=== PATIENT | male | born 1930 ===

== ENCOUNTER 2017-03-18 05:40 | Inpatient (IN) | payer OTHER ==
[2017-03-18] VITALS (10 sets, daily range): BP systolic 118–165; BP diastolic 63–80
[~2017-03-18] VITALS: Ht 172.7 cm; Wt 63.5 kg
--- NOTE | 2017-03-18 06:39 | ED CLINICAL REPORT ---
Clinical Report - Physicians/Mid Levels [facility] [address] [place] [address] 03/18/2017 5:44 Patient: [address] Time Seen: 06:05 Mar 18 2017. Arrived- By ambulance. Historian- patient, EMS personnel and family. CPT: ER phys charges level 5 plus (#[id number]). EKG interpretation (#[id number]). HISTORY OF PRESENT ILLNESS Chief Complaint: INJURY TO RIGHT LOWER EXTREMITY (HIP). Location of injuries- right hip. The injury occurred just prior to arrival. Occurred at home. Fell while walking and landed on a hard surface; lost balance (Was trying to walk in the dark and missed grabbing the door and fell.). The patient complains of moderate pain. No blow to the head, neck pain or loss of consciousness. Not dazed. REVIEW OF SYSTEMS The patient complains of severe pain on weight bearing. He cannot bear weight. No numbness, dizziness, chest pain, difficulty breathing or weakness. No nausea, abdominal pain or pain, laceration or fever. No vomiting, chills, fatigue, epistaxis or sore throat. No calf pain, cough, difficulty breathing, pedal edema or palpitations. No black stools, bloody stools, constipation, diarrhea or nausea. No vomiting, skin lesions or rash, weakness or diabetic symptoms. No easy bruising, symptoms of hypothyroidism or difficulty with urination. The patient complains of severe pain on weight bearing. He cannot bear weight. He has had difficulty walking. All systems otherwise negative, except as recorded above. PAST HISTORY Hypertension. ND with stent 3 years ago. Thyroid disease. Medications: Latanoprost Ophthalmic. Levothyroxine Sodium Oral 50 mcg, daily. Aspirin Oral. Atropine-Care Ophthalmic. Lisinopril Oral 5 mg, daily. Simvastatin Oral 40 mg, daily. Metoprolol Tartrate Oral 25 mg. Allergies: No Known Drug Allergy. SOCIAL HISTORY Never smoker. No alcohol use or drug use. ADDITIONAL NOTES The nursing notes have been reviewed. PHYSICAL EXAM Vital Signs: 03/18/2017 05:45 BP: 192/89. HR: 71. RR: 16. O2 saturation: 98%. Temp: 97.6 F. Pain level now: 10/10. Appearance: Alert. Appears to be in pain. Patient in moderate distress. Head: Head non-tender. Eyes: Pupils equal, round and reactive to light. EOM intact. ENT: No dental injury. Pharynx normal. Neck: Non-tender. CVS: Heart sounds normal. Pulses normal. Respiratory: Breath sounds normal. Chest nontender. Abdomen: No visible injury. Soft and nontender. Back: No tenderness. Skin: Skin intact. Skin warm. Normal skin color. Extremities: Right hip: deformity consistent with a hip fracture and severe tenderness located in the anterior and lateral aspect of the hip. The right leg is shortened and internally rotated. Limited ROM secondary to pain. Neurovascular intact distally. No swelling or abrasion. Neuro: Oriented X 3. No motor deficit. No sensory deficit. LABS, X-RAYS, AND EKG EKG: Normal sinus rhythm. Left atrial enlargement. LVH. Normal ST and T waves. Prior EKG unavailable. The study has been interpreted contemporaneously. The study has been independently viewed by me. The EKG appears to be a good tracing. Chest X-ray: No acute disease. Views: AP (portable). Technique: good. The X-rays were independently viewed by me and interpreted contemporaneously by me. Rt Hip X-ray: Nondisplaced, transverse femoral neck fracture of the right hip. Views: 2 view hip series. Technique: good. The X-rays were independently viewed by me and interpreted contemporaneously by me. PROGRESS AND PROCEDURES Course of Care: IV NS Demerol 12.5 mg IV Patient is stable. Symptoms better. Discussed case with on-call health care provider, (Major). Reviewed test results. Agreed upon treatment plan and decision to admit. Health care provider will see patient in ED. Patient/family counseled. Old medical records ordered. Disposition orders written. Disposition: Admitted to Acute Care. CLINICAL IMPRESSION Closed nondisplaced and moderately angulated fracture of the subcapital neck of the right femur. Fall on same level by tripping. Uncontrolled essential hypertension. (Electronically signed by Kane Serrano MD 03/18/2017 7:32)
--- NOTE | 2017-03-18 06:39 | ED ORDER SUMMARY ---
..... Patient: [address] OrderSheet [facility] VisitID: [id number] [address] [place] [address] 86y, M Registration Date/Time: 03/18/2017 ORDER SHEET Weight: 56.6 kg (stated) Allergies: No Known Drug Allergy GENERAL ORDERS: Hip 2V Right w AP Pelvis Urgent (06:06 03/18/2017 Lincoln ROCHE) (Ack 6:08 AMcQuoid ER Tech1) (6:27 RFay) Chest 1V Urgent (06:06 03/18/2017 Lincoln ROCHE) (Ack 6:08 AMcQuoid ER Tech1) (6:27 RFay) Cardiac Panel Stat (06:07 03/18/2017 Lincoln ROCHE) (Ack 6:08 AMcQuoid ER Tech1) (6:56 AMcQuoid ER Tech1) UA-Culture if indicated Urgent (06:07 03/18/2017 Lincoln ROCHE) (Ack 6:08 AMcQuoid ER Tech1) (7:58 JBoardley R.N.) BNP Urgent (06:44 03/18/2017 Lincoln ROCHE) (6:56 AMcQuoid ER Tech1) TSH Urgent (06:44 03/18/2017 Lincoln ROCHE) (6:56 AMcQuoid ER Tech1) EKG - ER Stat (07:05 03/18/2017 Lincoln ROCHE) (Ack 7:11 LMuller) (7:26 HSoule) MEDICATION ORDERS: IV FLUIDS: IV NS : initial bolus none -, then 125 mL/hr for 4h (NOW); Routine (06:06 03/18/2017 Lincoln ROCHE) (Ack 6:08 HSoule) (6:31 HSoule) Demerol IV 12.5 mg (NOW) (06:07 03/18/2017 Lincoln ROCHE) (Ack 6:08 HSoule) (6:11 HSoule) Vasotec IV 1.25 mg (NOW) (07:03 03/18/2017 Lincoln ROCHE) (Ack 7:18 HSoule) (7:31 HSoule) ORDER SHEET NOTES: [Electronically signed by Kane Serrano MD (07:32 03/18/2017)] [Electronically signed by Isai Carrera R.N. (59 03/18/2017)] [Electronically locked/signed by Isai Carrera R.N. (03/18/2017)]
--- NOTE | 2017-03-18 06:39 | ED CLINICAL REPORT ---
Clinical Report - Physicians/Mid Levels [facility] [address] [place] [address] 03/18/2017 5:44 Patient: EL[address] Time Seen: 06:05 Mar 18 2017. Arrived- By ambulance. Historian- patient, EMS personnel and family. CPT: ER phys charges level 5 plus (#[id number]). EKG interpretation (#[id number]). HISTORY OF PRESENT ILLNESS Chief Complaint: INJURY TO RIGHT LOWER EXTREMITY (HIP). Location of injuries- right hip. The injury occurred just prior to arrival. Occurred at home. Fell while walking and landed on a hard surface; lost balance (Was trying to walk in the dark and missed grabbing the door and fell.). The patient complains of moderate pain. No blow to the head, neck pain or loss of consciousness. Not dazed. REVIEW OF SYSTEMS The patient complains of severe pain on weight bearing. He cannot bear weight. No numbness, dizziness, chest pain, difficulty breathing or weakness. No nausea, abdominal pain or pain, laceration or fever. No vomiting, chills, fatigue, epistaxis or sore throat. No calf pain, cough, difficulty breathing, pedal edema or palpitations. No black stools, bloody stools, constipation, diarrhea or nausea. No vomiting, skin lesions or rash, weakness or diabetic symptoms. No easy bruising, symptoms of hypothyroidism or difficulty with urination. The patient complains of severe pain on weight bearing. He cannot bear weight. He has had difficulty walking. All systems otherwise negative, except as recorded above. PAST HISTORY Hypertension. [place] with stent 3 years ago. Thyroid disease. Medications: Latanoprost Ophthalmic. Levothyroxine Sodium Oral 50 mcg, daily. Aspirin Oral. Atropine-Care Ophthalmic. Lisinopril Oral 5 mg, daily. Simvastatin Oral 40 mg, daily. Metoprolol Tartrate Oral 25 mg. Allergies: No Known Drug Allergy. SOCIAL HISTORY Never smoker. No alcohol use or drug use. ADDITIONAL NOTES The nursing notes have been reviewed. PHYSICAL EXAM Vital Signs: 03/18/2017 05:45 BP: 192/89. HR: 71. RR: 16. O2 saturation: 98%. Temp: 97.6 F. Pain level now: 10/10. Appearance: Alert. Appears to be in pain. Patient in moderate distress. Head: Head non-tender. Eyes: Pupils equal, round and reactive to light. EOM intact. ENT: No dental injury. Pharynx normal. Neck: Non-tender. CVS: Heart sounds normal. Pulses normal. Respiratory: Breath sounds normal. Chest nontender. Abdomen: No visible injury. Soft and nontender. Back: No tenderness. Skin: Skin intact. Skin warm. Normal skin color. Extremities: Right hip: deformity consistent with a hip fracture and severe tenderness located in the anterior and lateral aspect of the hip. The right leg is shortened and internally rotated. Limited ROM secondary to pain. Neurovascular intact distally. No swelling or abrasion. Neuro: Oriented X 3. No motor deficit. No sensory deficit. LABS, X-RAYS, AND EKG EKG: Normal sinus rhythm. Left atrial enlargement. LVH. Normal ST and T waves. Prior EKG unavailable. The study has been interpreted contemporaneously. The study has been independently viewed by me. The EKG appears to be a good tracing. Chest X-ray: No acute disease. Views: AP (portable). Technique: good. The X-rays were independently viewed by me and interpreted contemporaneously by me. Rt Hip X-ray: Nondisplaced, transverse femoral neck fracture of the right hip. Views: 2 view hip series. Technique: good. The X-rays were independently viewed by me and interpreted contemporaneously by me. PROGRESS AND PROCEDURES Course of Care: IV NS Demerol 12.5 mg IV Patient is stable. Symptoms better. Discussed case with on-call health care provider, (Major). Reviewed test results. Agreed upon treatment plan and decision to admit. Health care provider will see patient in ED. Patient/family counseled. Old medical records ordered. Disposition orders written. Disposition: Admitted to Acute Care. CLINICAL IMPRESSION Closed nondisplaced and moderately angulated fracture of the subcapital neck of the right femur. Fall on same level by tripping. Uncontrolled essential hypertension. (Electronically signed by Kane Serrano MD 03/18/2017 7:32)
--- NOTE | 2017-03-18 06:39 | ED ORDER SUMMARY ---
..... Patient: ELDA [address] OrderSheet [facility] VisitID: [id number] [address] [place] [address] 86y, M Registration Date/Time: 03/18/2017 ORDER SHEET Weight: 56.6 kg (stated) Allergies: No Known Drug Allergy GENERAL ORDERS: Hip 2V Right w AP Pelvis Urgent (06:06 03/18/2017 Lincoln ROCHE) (Ack 6:08 AMcQuoid ER Tech1) (6:27 RFay) Chest 1V Urgent (06:06 03/18/2017 Lincoln ROCHE) (Ack 6:08 AMcQuoid ER Tech1) (6:27 RFay) Cardiac Panel Stat (06:07 03/18/2017 Lincoln ROCHE) (Ack 6:08 AMcQuoid ER Tech1) (6:56 AMcQuoid ER Tech1) UA-Culture if indicated Urgent (06:07 03/18/2017 Lincoln ROCHE) (Ack 6:08 AMcQuoid ER Tech1) (7:58 JBoardley R.N.) BNP Urgent (06:44 03/18/2017 Lincoln ROCHE) (6:56 AMcQuoid ER Tech1) TSH Urgent (06:44 03/18/2017 Lincoln ROCHE) (6:56 AMcQuoid ER Tech1) EKG - ER Stat (07:05 03/18/2017 Lincoln ROCHE) (Ack 7:11 LMuller) (7:26 HSoule) MEDICATION ORDERS: IV FLUIDS: IV NS : initial bolus none -, then 125 mL/hr for 4h (NOW); Routine (06:06 03/18/2017 Lincoln ROCHE) (Ack 6:08 HSoule) (6:31 HSoule) Demerol IV 12.5 mg (NOW) (06:07 03/18/2017 Lincoln RCOHE) (Ack 6:08 HSoule) (6:11 HSoule) Vasotec IV 1.25 mg (NOW) (07:03 03/18/2017 Lincoln ROCHE) (Ack 7:18 HSoule) (7:31 HSoule) ORDER SHEET NOTES: [Electronically signed by Kane Serrano MD (07:32 03/18/2017)] [Electronically signed by Isai Carrera R.N. (59 03/18/2017)] [Electronically locked/signed by Isai Carrera R.N. (03/18/2017)]
--- NOTE | 2017-03-18 06:39 | ED NURSING NOTES ---
Clinical Report - [facility] [address] [place] [address] 03/18/2017 5:44 Patient: ELDA [address] TRIAGE Triage time 05:40 Mar 18 2017. Acuity: LEVEL 3. Chief Complaint: FALL while walking, onto a carpeted surface; lost balance. SEPSIS SCREEN: Sepsis Screen: negative. Negative (no infection suspected/documented). VENKAT COMA SCORE: Venkat Coma Scale: 15- eyes open spontaneously (4); best verbal response- oriented x 4 (5); best motor response- obeys commands (6). --05:54 Marisel Ceballos 05:45 03/18/17. BP: 192/89. HR: 71. RR: 16. O2 saturation: 98%. Temp: 97.6 F (oral). Pain level now: 08/06. --05:54 Marisel Ceballos. Weight: 56.6 kg stated. Height/Length: 68 inches Per Patient. BMI: 19. --05:48 Marisel Ceballos. Medications Metoprolol Tartrate Oral 25 mg. --05:50 Marisel Ceballos Simvastatin Oral 40 mg, daily. --05:50 Marisel Ceballos Lisinopril Oral 5 mg, daily. --05:50 Marisel Ceballos Atropine-Care Ophthalmic. --05:50 Marisel Ceballos Aspirin Oral. --05:51 Marisel Ceballos Levothyroxine Sodium Oral 50 mcg, daily. --05:51 Marisel Ceballos Latanoprost Ophthalmic. --05:53 Marisel Ceballos The following entry was struck by Marisel Ceballos, 06:32 (03/18/17) Reason - other. <<STRICKEN ENTRY-- Clopidogrel Bisulfate Oral 75 mg, daily. --05:50 Marisel Ceballos --END STRIKE>>. Medication/allergy information source: the patient. --05:54 Marisel Ceballos. Allergies No Known Drug Allergy. --05:53 Marisel Ceballos. History Arrived by private vehicle. Historian: patient. Accompanied by family. Primary physician (mariusz aldridge). Location of injuries: right hip. This occurred just prior to arrival. Occurred at home. ( Patient reports that he was walking to the restroom this morning when he lost his balance. He states, " I was losing my balance so I did a rapid sit down." He reports he heard a pop when he made impact. EMS report shortening and rotation.). No loss of consciousness. No alteration in mental status or dizziness. PAST MEDICAL HX: Tetanus status: up-to-date. Immunizations: up-to-date. SOCIAL HX: Never smoker. No alcohol use or drug use. No infectious disease exposure. ABUSE ASSESSMENT: No report of abuse. NUTRITIONAL RISK ASSESSMENT: The nutritional risk assessment revealed no deficiencies. FUNCTIONAL ASSESSMENT: Functional assessment: no impairments noted. LEARNING NEEDS ASSESSMENT: The learning needs assessment revealed no barriers. FALL RISK ASSESSMENT: Fall risk assessment completed. Risk factors identified include patient medications and age greater than 65 years. Fall interventions initiated. Patient placed on stretcher. Side rails up x2. Brakes on Bed in low position. Patient visible from nurses' station. Family at bedside. Call light in reach of patient. Instructed not to get up without assistance. SKIN INTEGRITY ASSESSMENT: Skin integrity risk assessment completed. No skin integrity risk identified. --05:54 Marisel Ceballos. PROBLEMS: Myocardial Infarction. Hypertension. Hypothyroidism. --05:54 Marisel Ceballos. ADDITIONAL SURGERIES: Appendectomy. Cardiac Catheterization. Tonsillectomy. --05:54 Marisel Ceballos. Interventions ID band on patient. To treatment room. --05:54 Marisel Ceballos. PHYSICAL ASSESSMENT To room via stretcher. Patient gowned. GENERAL / NEURO / PSYCH: Alert. Oriented X 4. Appears in pain. RESPIRATORY: Respirations not labored. GI / : Abdomen soft and nontender. EXTREMITIES: Right hip: tenderness. The right leg is shortened. SKIN: Skin intact. Skin is warm and dry. --05:55 Marisel Ceballos. NURSING PROGRESS NOTES Reassurance given to the patient. Two patient identifiers checked. Call light placed in reach. Side rails up x 1. Bed placed in lowest position. Brakes of bed on. Patient ready for evaluation- chart flagged and ED physician notified. ( "Clam shell" wrap performed by EMS. Pelvis is stable at this time.). --05:57 Marisel Ceballos 06:01 03/18/2017 Site #1 started via IV in the right antecubital space with an 20g angiocath, with aseptic technique and good blood return; one attempt. Blood drawn: rainbow set. Labeled in the presence of the patient and sent to the lab. Saline lock flushed with 10 mL saline. --06:11 Marisel Ceballos 06:11 03/18/2017 Demerol (Meperidine HCl) IVP 12.5 mg given over 1 minute(s) via site #1. Allergies verified and confirmed 5 rights. IV patency established. IV site checked: no pain, redness, or swelling. IV flushed thoroughly pre- and post-medication administration. IVP given by RN. --06:11 Marisel Ceballos Patient transported to radiology by stretcher with tech. (06:12 Mar 18 2017). --06:12 Marisel Ceballos Assisted patient with urinal; tolerated well. --06:22 Ankush Ludwig R.N. 06:03/18/2017 Started bag #1 1000 mL IV Fluids IV NS (Saline); at 125 mL/hr over 4 hour(s) via site #1 via IV pump. Allergies verified and confirmed 5 rights. IV patency established. IV site checked: no pain, redness, or swelling. IV flushed thoroughly pre- and post-medication administration. --06:31 Marisel Ceballos 06:31 03/18/17. BP: 185/87. HR: 66. RR: 20. O2 saturation: 92% on room air. Pain level now: 04/06. --06:31 Marisel Ceballos 07:26 03/18/17. BP: 187/79. HR: 65. RR: 20. O2 saturation: 100% on nasal cannula at 2 liters/minute. Pain level now: 02/04. --07:28 Marisel Ceballos 07:31 03/18/2017 Vasotec IVP 1.25 mg given over 5 minute(s) via site #1. Allergies verified and confirmed 5 rights. IV patency established. IV site checked: no pain, redness, or swelling. IV flushed thoroughly pre- and post-medication administration. IVP given by RN. --07:31 Lin, Marisel Care transferred and report given (lynette GALVAN). --07:31 Marisel Ceballos 07:50 03/18/2017 IV Fluids IV NS Continued: upon admission at the rate of 125 mL/hr. 900 mL remaining bag #1. IV patency established. IV site checked: no pain, redness, or swelling. IV flushed thoroughly. --07:50 Isai Carrera R.N. Intake & Output Urine: 225 mL. --06:23 Ankush Ludwig R.N. DISPOSITION / DISCHARGE 07:49 03/18/17. BP: 173/76. HR: 66. RR: 16. O2 saturation: 100% on nasal cannula at 2 liters/minute. Temp: 97.9 F (oral). --07:51 Isai Carrera R.N. 07:51 03/18/17. The goals identified in the patient's plan of care were met. Patient's personal items include, suitcase, denes having money or weapons. FALL RISK ASSESSMENT: Fall risk assessment completed. No fall risk identified. --07:51 Isai Carrera R.N. 07:51 03/18/17. Bed obtained. --07:51 Isai Carrera R.N. 07:56 03/18/2017 Site #[address] upon admission; patent. --07:56 Isai Carrera R.N. 08:03 03/18/17. Report was given to a nurse via a phone call. All questions were answered. Report was acknowledged and care was transferred. --08:03 Isai Carrera R.N. 08:04 03/18/17. Departure time: 08:03. --08:04 Isai Carrera R.N. Locked/Released at 03/18/2017 11:59 by Isai Carrera R.N.
--- NOTE | 2017-03-18 07:45 | HISTORY AND PHYSICAL ---
ADMITTED: 03/18/2017 CHIEF COMPLAINT: 1. Fall HISTORY OF PRESENT ILLNESS: This is an 86-year-old white male who woke up last night from sleep and tried to walk to the door. 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 Friends came in and he got up with their help and called 911. He was transferred to the emergency department and was found to have a right hip fracture. He developed pain in the right hip immediately after the fall. MEDICAL/SURGICAL HISTORY: Past medical history is remarkable for coronary artery disease, hypertension, and blindness. Surgical history is remarkable for appendectomy and tonsillectomy. Last hospitalization was 1 year ago, that was for coronary artery disease with 2 stent placement. MEDICATIONS: 1. Metoprolol 25 mg probably daily. 2. Simvastatin 40 mg daily. 3. Lisinopril 5 mg daily. 4. Atropine ophthalmic solution. 5. Aspirin 325 mg daily. 6. Levoxyl 50 mcg once a day. 7. Latanoprost ophthalmic solution as directed. ALLERGIES: 1. NO KNOWN DRUG ALLERGIES. SOCIAL HISTORY: The patient is a , has 3 kids, lives alone. No history of smoking, alcohol or drug abuse. FAMILY HISTORY: Noncontributory. REVIEW OF SYSTEMS: No recent weight changes. The patient has hearing loss and also legally blind. No runny nose, congestion, cough. No shortness of breath or chest pains. Occasional palpitations. No nausea. No vomiting. No indigestion. No abdominal pain, chronic constipation. No dysuria, frequency or incontinence. No other myalgia or arthralgia, except right hip. No headaches. No dizziness. No tingling, no numbness. No localized weakness. No syncope. PHYSICAL EXAMINATION: VITAL SIGNS: Blood pressure on admission was 192/89, heart rate is 71, respirations 16, oxygen is 98% on room air, temperature 97.6. GENERAL APPEARANCE: Well-developed, well-nourished. Pain seems controlled, in no acute distress. HEENT: Ears: Normal tympanic membranes. Mouth: Normal hypopharynx, no exudation, no erythema. Nose: Normal mucosa. NECK: Supple. No JVD. No carotid bruit. No palpable mass. LUNGS: Clear to auscultation. No rhonchi or wheezing or crackles. HEART: Regular S1 and S2. No murmur. No S3 was heard. ABDOMEN: Soft, nontender. Bowel sounds are positive. EXTREMITIES: No edema. Good peripheral pulses. No signs of deep vein thrombosis. MUSCULOSKELETAL: Pain in right hip area and was not able to move. NEUROLOGIC: Alert and oriented x3. Cranial nerves are grossly intact. Extraocular movements could not be appreciated in the left eye. Pupil is not reactive in the left eye, but is reactive to light in the right eye along with extraocular movements in the right eye. No nystagmus. No cerebellar signs. Deep tendon reflexes are bilateral and symmetric. LAB/IMAGING: White blood count is 10.3, hemoglobin 14.9, hematocrit is 44, and platelet count is 182. Glucose 90, BUN is 18, creatinine 1. Sodium is 143, potassium 3.6, chloride is 106, CO2 is 26, calcium is 8.7. Liver enzymes are unremarkable. Magnesium is 2. Troponin is less than 0.06. Chest x-ray some interstitial changes, no acute changes though. X-ray of the right hip shows a right femur fracture. I do not see an EKG , so I will order an EKG that is for sure. We will add BNP to the blood work. IMPRESSION: 1- Right hip fracture 2- Hypertension 3-CAD PLAN: The patient will be admitted to acute care. Orthopedic already done in the emergency department and he is aware of the patient and planning to do a right hip repair. I inquired with patient about the code status, he would like to be FULL NO CODE. We will continue following up the patient in the hospital and we will continue his outpatient medications. I will check for blood pressure again, if it is not down , I will have to order IV Vasotec to get the blood pressure lower if it is not lower by now.
--- NOTE | 2017-03-18 07:54 | DIAGNOSTIC IMAGING REPORT ---
PROCEDURE: XR CHEST 1 VIEW INDICATION: Preop, hip fracture TECHNIQUE: Single view chest. 06:17 hours COMPARISON: None FINDINGS: Cardiomediastinal contour and central vessels are normal. The distal descending thoracic aorta is ectatic. There may be a small hiatal hernia. The lungs demonstrate coarse interstitial markings diffusely and mild hyperinflation. No dense consolidation, effusion, or pneumothorax. Visible osseous structures are intact. IMPRESSION: 1. Possible small hiatal hernia. 2. Coarse interstitial markings may be fibrotic senescent changes, evidence of emphysema, or less likely chronic edema.
--- NOTE | 2017-03-18 07:56 | DIAGNOSTIC IMAGING REPORT ---
PROCEDURE: XR HIP 2VW W W/O AP PELVIS-RT INDICATION: TRAUMA/INJURY TECHNIQUE: AP view of the pelvis and hips with lateral view of the right hip. COMPARISON: None. FINDINGS: RIGHT HIP: Mildly decreased mineralization. Impacted right femoral neck fracture resulting in varus deformity. No femoral acetabular dislocation. No significant angulation. Superior subluxation of the distal femur. No radiodense foreign bodies. PELVIS: Mildly decreased mineralization. Pelvic rings are intact. Mild degenerative changes in the left femoral acetabular joint. Mild degenerative change in the lower lumbar spine. Intrapelvic soft tissues and bowel gas pattern are unremarkable. IMPRESSION: 1. Impacted right femoral neck fracture resulting in varus deformity. 2. Mild demineralization.
--- NOTE | 2017-03-18 08:46 | Consultation Report ---
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 He is brought to [facility] emergency department after neighbors called 911. X-rays confirmed a varus displaced right femoral neck fracture without intertrochanteric involvement. He has been nothing by mouth since yesterday evening. His daughter Amanda Diaz is a physician who lives in [place] son Fransico Diaz lives in [facility]. He has another child as well. He reports that he does not use a cane crutch or walker other than his cane for blindness. He denies any history of DVT/PE or resistant infections or diabetes. He is a nonsmoker. Patient History 1. RIGHT HIP FRACTURE Social History lives alone please see HPI for additional social history. Medications and Allergies Medications Current Medications Sig/Obey Start time Last Medication Dose Route Stop Time Status Admin Levothyroxine Sodium 50 MCG DAILY@0600 03/19 0600 AC PO Pantoprazole Sodium 40 MG DAILY@00 03/19 0600 AC IV Atorvastatin Calcium 20 MG QPM 03/18 1800 AC PO Heparin Sodium 5,000 UNITS BID 03/18 900 AC (Porcine) SC Lisinopril 5 MG DAILY 03/18 0900 AC PO Metoprolol Tartrate 25 MG BID 03/18 0900 AC PO Dextrose/Sodium 1,000 ML ASDIRECTED 03/18 715 AC Chloride IV Hydromorphone HCl 1 MG Q1H PRN 03/18 715 AC IV Ondansetron HCl 4 MG Q6H PRN 03/18 715 AC PO Allergies Coded Allergies: No Known Drug Allergy (Severe, 03/18/17) Review of Systems Constitutional Denies: Fever, Chills, Sweats, Weakness, Malaise. Musculoskeletal Back Pain. Denies: Neck Pain, Shoulder Pain, Arm Pain, Hand Pain, Leg Pain, Foot Pain. Skin Denies: Rash, Lesions, Jaundice, Bruising. Neurological Denies: Weakness, Numbness, Change in speech, Confusion, Seizures. Physical Exam Vital Signs / I&Os Please see hospitalist H&P patient was slightly hypertensive with plan to recheck and possibly start Vasotec. General Appearance Alert, Oriented X3, Cooperative, No acute distress HEENT Normal exam (left eye closed), Atraumatic Lungs Normal air movement Extremities right lower extremity shortened and externally rotated he is tender at the right greater trochanter. Skin is intact over the operative site. He has varicose veins but toes are pink and warm with 2 second capillary refill and 1+ bilateral dorsalis pedis pulses. He is able to fire bilateral ankle dorsiflexors, plantar flexors EHL and FHL. He is able to move bilateral upper extremities without pain and left lower extremity is without pain or deformity. Psych/Mental Status Mental status normal, Mood normal LAB Results Laboratory Tests 03/18 03/18 03/18 03/18 0727 0600 0600 0552 Chemistry Plasma Sodium (136 - 145 mmol/L) 143 Plasma Potassium (3.5 - 5.1 mmol/L) 3.6 Plasma Chloride (98 - 107 mmol/L) 106 CO2 (Enzymatic) (21 - 32 mmol/L) 26 BUN (7 - 18 mg/dL) 18 Creatinine (0.6 - 1.3 mg/dL) 1.0 Est GFR ( Amer) (mL/min) >60 Est GFR (Non-Af Amer) (mL/min) >60 Glucose (70 - 110 mg/dL) 90 Plasma Calcium (8.5 - 10.1 mg/dL) 8.7 Plasma Magnesium (1.8 - 2.4 mg/dL) 2.0 Total Bilirubin (0.0 - 1.0 mg/dL) 1.0 AST (15 - 37 U/L) 34 ALT (12 - 78 U/L) 34 Alkaline Phosphatase (46 - 116 U/L) 109 Creatine Kinase (24 - 260 U/L) 67 Troponin (0.00 - 1.5 ng/mL) 0.06 B-Natriuretic Peptide (5 - 100 pg/ml) 50.6 Total Protein (6.4 - 8.2 g/dL) 7.4 Albumin (3.3 - 5.0 g/dL) 3.5 TSH 3rd Generation (0.30 - 3.74 uIU/mL) 3.341 Hematology WBC (4.5 - 11.5 K/uL) 10.3 RBC (4.50 - 5.90 M/uL) 4.73 Hgb (13.5 - 17.5 gm/dL) 14.9 Hct (41.0 - 53.0 %) 44.0 MCV (80 - 100 fL) 93 MCH (26 - 34 pg) 31 RDW (11.6 - 14.8 %) 14.3 Neut % (Auto) (50 - 75 %) 75.2 Lymph % (Auto) (25 - 40 %) 16.5 Noble % (Auto) (3 - 14 %) 5.8 Eos % (Auto) (0 - 4 %) 2.2 Baso % (Auto) (0 - 2 %) 0.3 Plt Count, EDTA (150 - 400 K/uL) 182 PUBS MCHC (31 - 37 g/dL) 34 Urines Urine Color YELLOW Urine Appearance CLEAR Urine pH (5.0 - 8.0) 7.0 Ur Specific [place] (1.010 - 1.030) 1.010 Urine Protein (NEGATIVE) NEGATIVE Urine Ketones (NEGATIVE) NEGATIVE Urine Blood (NEGATIVE) NEGATIVE Urine Nitrite (NEGATIVE) NEGATIVE Urine Bilirubin (NEGATIVE) NEGATIVE Urine Urobilinogen (0.2 - 1.0 EU/dL) 0.2 Ur Leukocyte Esterase (NEGATIVE) NEGATIVE Urine RBC (0 - 1 rbc/hpf) NONE SEEN Urine WBC (0 - 1 wbc/hpf) NONE SEEN Ur Epithelial Cells (0 - 5 EPI/hpf) NONE SEEN Urine Bacteria (NONE SEEN) NONE SEEN Urine Glucose (NEGATIVE) NEGATIVE Urine Comment CULT NOT INDICATED Imaging AP pelvis and lateral of right hip show a varus displaced, comminuted femoral neck fracture without evidence of pre-existing lytic lesions or adjacent hip degenerative joint disease. Assessment and Plan Problem List 1. RIGHT HIP FRACTURE Onset Date 03/18/17 Status Acute Plan We will keep him nothing by mouth apparently he has been cleared for surgery by the hospitalist. I have reviewed the reasons I recommend a right hip hemiarthroplasty to restore ability to sit up and walk decrease pain and minimize the risks of bed rest including DVT/PE, decubitus ulcers, pneumonia and even . Patient denies difficulty following instructions and therefore a posterior approach seems reasonable. Discussed the risks of surgery including but not limited to bleeding, infection, nerve injury, hip instability, fracture, leg length inequality, failure to obtain the goals including thromboembolic disease and . All questions were invited and answered. Patient freely and willingly signs a consent form. Site is marked OR is notified we will attempt to get him in as quickly as there is an operating room available.
[2017-03-18] MEDS ORDERED: ASPIRIN ADULT L81 MG PO (10:56)
[2017-03-18] MEDS ORDERED: SYNTHROID50 MCG PO (10:56)
[2017-03-18] MEDS ORDERED: PRINIVIL5 MG PO (10:56)
[2017-03-18] MEDS ORDERED: METOPROLOL SUCC25 MG PO (10:56)
[2017-03-18] MEDS ORDERED: SIMVASTATIN40 MG PO (10:57)
[2017-03-18] MEDS ORDERED: DORZOLAMIDE HCL/1 ML OP (10:58)
[2017-03-18] MEDS ORDERED: LATANOPROST0.005 % OP (10:58)
[2017-03-18] MEDS ORDERED: PRED FORTE1 % OP (10:59)
[2017-03-18] MEDS ORDERED: ATROPINE SULFATE 1% OP (10:59)
--- NOTE | 2017-03-18 11:59 | ED DISCHARGE INSTRUCTIONS ---
Patient: [address] General Instructions [facility] VisitID: [id number] [place] [address] 86y, M Registration Date/Time: 03/18/2017 Closed nondisplaced and moderately angulated fracture of the subcapital neck of the right femur. Fall on same level by tripping. Uncontrolled essential hypertension. ADDITIONAL INFORMATION Mechanical Fall You have had a fall today. It appears that the cause is mechanical. That means that you slipped, tripped or lost your balance. If your fall had been due to fainting or a seizure, further tests would be required. Home Care: Rest today and resume your normal activities when you are feeling back to normal. If you were injured during the fall, follow the advice from your doctor regarding care of your injury. You may use acetaminophen (Tylenol) or ibuprofen (Motrin, Advil) to control pain, unless another pain medicine was prescribed. [NOTE: If you have chronic liver or kidney disease or ever had a stomach ulcer or GI bleeding, talk with your doctor before using these medicines.] Fall Prevention: Was there anything that caused your fall that can be fixed, removed, or replaced? Make your home safe by keeping walkways clear of objects you may trip over. Use non-slip pads under rugs. Do not walk in poorly lit areas. Do not stand on chairs or wobbly ladders. Use caution when reaching overhead or looking upward. This position can cause a loss of balance. Be sure your shoes fit properly, have non-slip bottoms and are in good condition. Be cautious when going up and down curbs, and walking on uneven sidewalks. If your balance is poor, consider using a cane or walker. Stay as active as you can. Balance, flexibility, strength, and endurance all come from exercise. They all play a role in preventing falls. Follow Up with your doctor or as advised by our staff. Get Prompt Medical Attention if any of the following occur: Repeated mechanical falls, or unexplained falls Dizziness, fainting or seizure Severe headache Chest pain or shortness of breath Palpitations (very rapid or very slow or irregular heartbeat) Blood in vomit, stools (black or red color) Weakness of an arm or leg or one side of the face Difficulty with speech or vision Fracture: Lower Extremity You have a break (fracture) of the leg. A fracture is treated with a splint or cast or special boot. It will take at about 4-6 weeks for the fracture to heal. Surgery may be needed to fix severe injuries. Home Care: You will be given a splint, cast, boot, or other device to prevent movement at the site of injury. Unless you were told otherwise, use crutches or a walker and do not bear weight on the injured leg until cleared by your doctor to do so. (Crutches and walkers can be rented at many pharmacies and surgical/orthopedic supply stores). Keep your leg elevated to reduce pain and swelling. When sleeping, place a pillow under the injured leg. When sitting, support the injured leg so it is level with your waist. This is very important during the first 48 hours. Apply an ice pack (ice cubes in a plastic bag, wrapped in a towel) over the injured area for 20 minutes every 1-2 hours the first day. You can place the ice pack directly over the splint/cast. Continue with ice packs 3-4 times a day for the next two days, then as needed for the relief of pain and swelling. Keep the cast/splint/boot completely dry at all times. Bathe with your cast/splint/boot out of the water, protected with a large plastic bag, rubber-banded at the top end. If a boot or fiberglass cast/splint gets wet, you can dry it with a hair-dryer. You may use acetaminophen (Tylenol) or ibuprofen (Motrin, Advil) to control pain, unless another pain medicine was prescribed. [NOTE: If you have chronic liver or kidney disease or ever had a stomach ulcer or GI bleeding, talk with your doctor before using these medicines.] Follow Up with you doctor in one week, or as advised by our staff, to be sure the bone is healing properly. If a splint was applied, it may be converted to a cast at your next visit. [NOTE: A radiologist will review any X-rays that were taken. We will notify you of any new findings that may affect your care.] Get Prompt Medical Attention if any of the following occur: The plaster cast or splint becomes wet or soft The fiberglass cast or splint remains wet for more than 24 hours Increased tightness or pain under the cast or splint Toes become swollen, cold, blue, numb or tingly You have been given the following additional information: Fall, Mechanical Fracture, Lower Extremity (Electronically signed by Kane Serrano MD 03/18/2017 7:32)
--- NOTE | 2017-03-18 11:59 | ED MED RECONCILIATION SUMMARY ---
Patient: [address] Medication Reconciliation Report [facility] VisitID: [id number] [address] [place] [address] 86y, M Registration Date/Time: 03/18/2017 Weight: 56.6 kg Height/Length: 68 in. BMI: 19.0 ALLERGIES: No Known Drug Allergy The patient's Home Medications are listed below: THE FOLLOWING MEDICATIONS NEED TO BE RECONCILED: Aspirin Oral Atropine-Care Ophthalmic Latanoprost Ophthalmic Levothyroxine Sodium Oral 50 mcg, daily Lisinopril Oral 5 mg, daily Metoprolol Tartrate Oral 25 mg Simvastatin Oral 40 mg, daily The source(s) of the original Home Medication information: patient The following Medications were given to the patient in the Emergency Department: Demerol [IVP] IVP 12.5 mg, administered: 03/18/2017 6:11:00 AM IV NS IV Fluids bolus 0, then 125 mL/hr, administered: 03/18/2017 6:31:00 AM Vasotec [IVP] IVP 1.25 mg, administered: 03/18/2017 7:31:00 AM The following Medications were prescribed to the patient: None.
--- NOTE | 2017-03-18 11:59 | ED MAR SUMMARY ---
..... Medication Administration Record [facility] [address] [place] [address] Patient: [address] Visit ID: [id number] 86y, M Weight: 56.6 kg Height/Length: 68 in BMI: 19 ALLERGIES: No Known Drug Allergy Given 06:11 03/18/2017 Marisel Ceballos, Medication Administered: DEMEROL [IVP] (MEPERIDINE HCL), Dose: 12.5 mg IVP over 1 minute(s), Site: #1 right AC. Medication Ordered: Demerol IV 12.5 mg (NOW). Start 06:31 03/18/2017 Marisel Ceballos,, Continued Upon Admission 07:50 03/18/2017 Isai Carrera R.N. Medication Administered: IV NS (SALINE), Dose: IV Fluids over 4 hour(s), Rate: 125 mL/hr, Dispensed: 1000 mL bag, Site: #1 right AC. Medication Ordered: IV NS : initial bolus none -, then 125 mL/hr for 4h (NOW); Routine. Given 07:03/18/2017 Marisel Ceballos, Medication Administered: VASOTEC [IVP], Dose: 1.25 mg IVP over 5 minute(s), Site: #1 right AC. Medication Ordered: Vasotec IV 1.25 mg (NOW).
--- NOTE | 2017-03-18 11:59 | ED MAR SUMMARY ---
..... Medication Administration Record [facility] [address] [place] [address] Patient: [address] Visit ID: [id number] 86y, M Weight: 56.6 kg Height/Length: 68 in BMI: 19 ALLERGIES: No Known Drug Allergy Given 06:11 03/18/2017 Marisel Ceballos, Medication Administered: DEMEROL [IVP] (MEPERIDINE HCL), Dose: 12.5 mg IVP over 1 minute(s), Site: #1 right AC. Medication Ordered: Demerol IV 12.5 mg (NOW). Start 06:31 03/18/2017 Marisel Ceballos,, Continued Upon Admission 07:50 03/18/2017 Isai Carrera R.N. Medication Administered: IV NS (SALINE), Dose: IV Fluids over 4 hour(s), Rate: 125 mL/hr, Dispensed: 1000 mL bag, Site: #1 right AC. Medication Ordered: IV NS : initial bolus none -, then 125 mL/hr for 4h (NOW); Routine. Given 07:03/18/2017 Marisel Ceballos, Medication Administered: VASOTEC [IVP], Dose: 1.25 mg IVP over 5 minute(s), Site: #1 right AC. Medication Ordered: Vasotec IV 1.25 mg (NOW).
--- NOTE | 2017-03-18 11:59 | ED MED RECONCILIATION SUMMARY ---
Patient: [address] Medication Reconciliation Report [facility] VisitID: [id number] [address] [place] [address] 86y, M Registration Date/Time: 03/18/2017 Weight: 56.6 kg Height/Length: 68 in. BMI: 19.0 ALLERGIES: No Known Drug Allergy The patient's Home Medications are listed below: THE FOLLOWING MEDICATIONS NEED TO BE RECONCILED: Aspirin Oral Atropine-Care Ophthalmic Latanoprost Ophthalmic Levothyroxine Sodium Oral 50 mcg, daily Lisinopril Oral 5 mg, daily Metoprolol Tartrate Oral 25 mg Simvastatin Oral 40 mg, daily The source(s) of the original Home Medication information: patient The following Medications were given to the patient in the Emergency Department: Demerol [IVP] IVP 12.5 mg, administered: 03/18/2017 6:11:00 AM IV NS IV Fluids bolus 0, then 125 mL/hr, administered: 03/18/2017 6:31:00 AM Vasotec [IVP] IVP 1.25 mg, administered: 03/18/2017 7:31:00 AM The following Medications were prescribed to the patient: None.
--- NOTE | 2017-03-18 16:58 | Progress Note ---
Subjective General ADVANCED CARE PLAN History of Present Illness This is an 86-year-old white male who woke up last night from sleep and tried to walk to the door. 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 Friends came in and he got up with their help and called 911. He was transferred to the emergency department and was found to have a right hip fracture. He developed pain in the right hip immediately after the fall. A discussion was undertaken with the patient regarding previous advance care arrangements/decisions. The following advanced directives were noted by the patient and discussed with me at the time of admission. ADVANCED DIRECTIVES: 1. Living well: Yes 2. POLST: Yes 3. CODE STATUS: Full No Code 4. Durable Power Sand Buffer Health care: Yes 5. Donor card: Yes The patient has expressed interest in not pursuing any form of resuscitation at this time. She has opted not to pursue intubation/mechanical ventilation, CPR, electrical cardioversion, or life-sustaining efforts involving drugs at the time of cardiopulmonary arrest. The patient's wishes were documented in the chart and orders regarding the patient's wishes entered into the [employer] system. The "Advance Care Plan Document" was not distributed to patient to discuss with his family. Less than 30 minutes was spent in performing the above tasks and documentation of the patient's advanced care plan.
--- NOTE | 2017-03-18 17:49 | Postoperative Progress Note ---
Postop Progress Note Preoperate Diagnosis: Displaced R fgemoral neck fx, osteoporosis Postoperative Diagnosis: Same Surgeon: Husam Randhawa MD Anesthesia: General ETT Findings: See dictation Procedure: Cemented R hip hemiarthroplasty Complications? No Condition: Stable EBL: 75 mL Fluid(s): 700 mL LR Drain(s): Hemovac, Off suction until leaves PACU Blood Administered: None Specimen(s) removed? No Grafts or Implants? Yes Graft/Implant type: [employer] Synergy High Offset Cementedd size 15 femoral component, 50mm Endo head + 8mm neck adapter, 11 mm distal centralizer, large cement restrictor . (See nursing notes for details of grafts/implants)
--- NOTE | 2017-03-18 18:33 | NUR ---
PATIENT STABLE, RESPONDS TO COMMANDS. SLEEPING WHEN UNDISTURBED. DENIES PAIN OR DISCOMFORT. VS WNL.
--- NOTE | 2017-03-18 18:43 | NUR ---
DIXIE PUT TO COMPRESSION SUCTION AT 1843.
--- NOTE | 2017-03-18 18:57 | NUR ---
PT JUST ARRIVED TO FLOOR FROM PACU. WOUND VAC WITH SEROUS DRAINAGE. ICE PACK ON R THIGH. PT IS SLEEPY AND NOT RESPONDING. WILL PROVIDE WARM BLANKETS. NO SOB. CALLING RT TO START CAPNOGRAPHY. DRESSING CDI. WCTM.
--- NOTE | 2017-03-18 19:12 | DIAGNOSTIC IMAGING REPORT ---
PROCEDURE: XR HIP 2VW W W/O AP PELVIS-RT INDICATION: s/p R hip hemiarthroplasty for fem neck fx TECHNIQUE: AP view of the pelvis and hips with lateral view of the right hip. COMPARISON: Right hip x-ray 03/18/2017 FINDINGS: RIGHT HIP: Interval placement of a right hip arthroplasty with satisfactory positioning. There is a surgical drain in place. PELVIS: Osteopenia. No suspicious osseous lesions. Dejesus catheter in place. IMPRESSION: 1. Right hip arthroplasty with satisfactory position.
--- NOTE | 2017-03-18 19:39 | NUR ---
PT RESPONDING TO QUESTIONS AND STATES R THIGH IS "ACHING". WILL ADMIN PAIN MEDS.
--- NOTE | 2017-03-18 20:43 | NUR ---
PT C/O PAIN BUT "TOLERABLE", RESPIRATIONS AT 6-8 SO THIS RN IS NOT PROVIDING PAIN MEDS AT THIS TIME. PROVIDED MORE ICE FOR R HIP, ELEVATED HOB TO 45. MONITORING CLOSELY.
--- NOTE | 2017-03-18 21:11 | NUR ---
PT IS STABLE BUT DROWSY, ABLE TO RESPOND TO QUESTIONS. CALLED YRUMA TO ASSESS STATUS FOR PO MEDS. HOLD FOR NOW PER MD. WESTON CLOSELY.
--- NOTE | 2017-03-18 22:45 | OPERATIVE REPORT ---
DATE OF SURGERY: 03/18/2017 SURGEON: Husam Randhawa MD DOLL WIG HACKLER: None. PREOPERATIVE DIAGNOSES: 1. Right displaced femoral neck fracture 2. Osteoporosis POSTOPERATIVE DIAGNOSES: 1. Right displaced femoral neck fracture 2. Osteoporosis PROCEDURE PERFORMED: 1. Right hip cemented hemiarthroplasty with Farley [employer] Nephew Synergy high offset size 15 femoral component, 50 mm diameter unipolar head with +8 neck adapter, 11 mm distal centralizer, enlarged cement restrictor, all cemented with Simplex plus gentamicin bone cement ANESTHESIA: General endotracheal. ESTIMATED BLOOD LOSS: 75 mL. FLUIDS: Blood replacement, 700 mL intravenous Lactated Ringer's, crystalloid fluids, no blood products. URINE OUTPUT: Estimated urine output, 110 mL per Dejesus. PATHOLOGY SPECIMEN: None. DRAINS: None. COMPLICATIONS: None. CONDITION: The patient leaving the operating room stable and satisfactory. 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 There was no loss of consciousness and no other injury other than right hip pain. He was brought to [facility] Emergency Department where x-rays showed the displaced right femoral neck fracture. He was seen by the hospitalist, admitted and cleared for surgery. He was indicated for right hip cemented hemiarthroplasty to allow the patient to mobilize, decrease pain and maximize function while minimizing the risks of bed rest including thromboembolic disease, decubitus ulcers, aspiration pneumonia and even . Risks were discussed with the patient including, but not limited to bleeding, infection, nerve injury, leg length inequality, fracture, hip instability. The patient understood the risks and benefits, and elected to sign the consent form. SURGICAL FINDINGS: Confirmed preoperative imaging. There was a displaced femoral neck fracture. The acetabular cartilage and labrum were in remarkably good condition. Hip was stable and leg length clinically equalized with good soft tissue tension with the above-listed components. He had absolute stability to anterior dislocation, maximum extension, external rotation adduction. In 60 degrees of flexion, maximum adduction and 60 degrees of internal rotation, the hip was stable and in 90 degrees of flexion , neutral adduction and up to 60 degrees of internal rotation, the hip was also stable. Postoperative Plan: The patient will have an AP pelvis and lateral x-ray in the PACU. He will then, assuming no unexpected findings, be weightbearing as tolerated with posterior hip precautions. He will have the abduction pillow on while in bed. Thromboembolic prophylaxis will be with ambulation, knee-high BEATRICE hose and SCDs bilaterally and enteric-coated aspirin 325 mg twice daily for 6 weeks. He will have physical therapy postoperatively. We will follow his hematocrit and transfuse, if necessary, for postoperative or posttraumatic blood loss anemia. He will likely need a chcf facility. Return to clinic in 2 weeks' time for wound check, 6 weeks' time for x -rays. SURGICAL TECHNIQUE: The patient was identified in the preoperative holding area. He had no interval change in his medical condition and no interval questions. He was seen and interviewed by Anesthesia and nursing team members, and brought back to the operating room where general endotracheal anesthesia was administered. Two grams of cefazolin were given intravenously for antibiotic prophylaxis. Pneumatic compression devices were run over knee-high BEATRICE hose on the nonoperative leg. He was then positioned right side up lateral decubitus with an axillary roll after the Dejesus catheter was placed. Perineum and thorax were isolated off with plastic adhesive barrier U drapes. Surgical pause was completed, confirming the correct patient, operative site, procedure, appropriate availability of implants and instrumentation. Everyone in the room including surgical nursing and anesthetic team members agreed that we should proceed. We also confirmed perioperative antibiotic delivery, as well as deep venous thrombosis prophylaxis as described above. The leg was then sterilely prepped with ChloraPrep from the drapes to the tips of the toes in a sterile fashion and draped free in a waterproof sterile fashion with Ioban isolating the skin. Incision was marked for a posterior approach to the hip, carried sharply through skin and dermis. Deep dermis and subcutaneous adipose tissue was divided with electrocautery. The fascia was divided in line with the incision and then the gluteus dulce was split digitally in line with the fascial incision. The fascia aggie was divided in line with the incision in the distal aspect. Charnley retractor was placed, bursal tissue removed as necessary. Piriformis identified and released from its insertion and tagged with #2 FiberWire for subsequent retraction and repair. A hockey-stick capsulotomy including the short external rotators was then executed and tagged with #2 FiberWire for subsequent retraction and repair. Electrocautery was used to obtain hemostasis from the bleeding branches of the ascending medial femoral circumflex artery. The hip was then exposed and the osteotomy was made at the base of the femoral neck, approximately a fingerbreadth above the lesser trochanter in line with the template for the proximal aspect of the femur and then vertically up the lateral aspect of the greater trochanter. The neck bone was then removed and the femoral head extracted from the acetabulum with a corkscrew extractor. Additional bone fragments were removed, as well as the round ligament of the femoral head. This was done with electrocautery. The acetabulum was irrigated, inspected and the labrum and articular cartilage found to be in remarkably good condition. The acetabulum was then packed with a laparotomy sponge and the proximal femur delivered into the wound. Box osteotome was used to remove the medial wall of the greater trochanter and entered the femoral canal, which was then suctioned, and the [facility] canal finder employed. We then hand reamed up to a size 13 stem and then broached and found the size 15 fit best. The calcar was inspected and no vertical split fractures were identified. The canal was sounded and an 11 distal centralizer was selected. The large Smith cement restrictor was then impacted into position, leaving at least 1 cm or 2 distal to the 140 mm stem length. Next, the canal was cleaned with a bottle brush, irrigated with pulsatile lavage and dried with the suction tampon. Two packs of the Simplex plus gentamicin cement were then mixed and injected into the femoral canal and pressurized. The prosthesis was inserted, holding for correct anteversion, until the cement was hardened, after removing all the excess cement. Once the cement was hard additional excess cement was removed with a rongeur, copious irrigation was again performed cleaning the acetabulum. We trialed with the 50 mm endo head, which had fit the acetabulum well based on measurements of the femoral head. It was removed prior to preparation of the femoral canal and found that the best soft tissue tension, leg length equality and stability were obtained with the +8 neck adapter. The trunnion was then cleansed with pulse lavage, dried and the 50 mm diameter unipolar head with the +8 neck adapter was impacted into position and checked to be certain it was secure. Hip was then again carefully reduced, taken through a range of motion with the above-noted stability and soft tissue tension and leg length findings. The wound was closed in layers using drill holes through the greater trochanter for the capsulotomy and sutured of the piriformis to the abductor tendon with the existing #2 FiberWire stay sutures. Drain was placed exiting inferiorly and anteriorly. The fascia aggie and gluteal fascia were closed with [id number] 0 Vicryl. The Sonali fascia was closed with a single 0 Vicryl suture and then the subdermal inverted Vicryl sutures and 2-0 undyed Vicryl were placed followed by a 3-0 running V-Loc subcuticular stitch. Steri-Strips for the skin and Dermabond were then applied. The drain was used to instill 1 g of tranexamic acid and 0.25% Marcaine with epinephrine. The drain was attached to the suction canister, but suction was not applied and to allow for the medications to be absorbed. The patient was then reversed from anesthesia after the sterile dressing was placed and the patient was supine on the hospital bed with the abduction pillow in place, brought to the recovery room in stable and satisfactory condition having tolerated the procedure well without apparent complication. All sponge, needle and instrument counts were reported correct prior to leaving the operating room.
--- NOTE | 2017-03-18 23:45 | NUR ---
PT WAS CLOSELY MONITORED THROUGHOUT SHIFT DUE TO BOUTS OF LOW RESPIRATIONS. RESPONDED TO BEING WOKEN UP AND ANSWERED QUESTIONS. PASSED ON INFO TO JEANIE GALVAN.
[2017-03-19] VITALS (9 sets, daily range): BP systolic 85–144; BP diastolic 42–70
--- NOTE | 2017-03-19 05:47 | NUR ---
PT SLEPT WELL DURING THE SHIFT. CAPNOGRAPHY ON, RESPIRATIONS MOSTLY REMAINED BETWEEN 12-17, BUT OCCASIONALLY DIPPED DOWN TO 5. RR WOULD INCREASE WITH VERBAL STIMULATION. PT DROWSY AND UNABLE TO OPEN EYES, BUT COULD RESPOND APPROPRIATELY TO QUESTIONS AND COMMANDS. WAS MORE RESTLESS IN THE MORNING, WHEN ASKED HIS PAIN LEVEL, PT RESPONDED "10/10". BECAUSE RESPIRATIONS AT THAT TIME WERE 8-10, UNABLE TO GIVE DILAUDID BUT CALLED DR. HENSON AND RECEIVED ONE TIME ORDER FOR TORADOL. THIS RN DID NOT AUSCULTATE CRACKLES NOTED IN PREVIOUS SHIFT. FLUIDS REMAINED AT 75 ML/HR.
--- NOTE | 2017-03-19 08:24 | Progress Note ---
Subjective General No c/o. RN reports pt was sedate last night so narcotic pain meds minimized. Acknowledges R hip pain, denies CP, SOB, Calf pain. A&Ox3. Physical Exam Vital Signs / I&Os Vital Signs Date Time Temp Pulse Resp B/P Pulse O2 O2 Flow FiO2 Ox Delivery Rate 03/19 0802 91 11 98 4.0 03/19 0709 37.2 89 8 110/58 97 Nasal 4.0 Cannula 03/19 0518 99 11 97 4.0 03/19 0327 92 17 97 4.0 03/19 0253 37.0 89 10 144/70 98 Nasal 5.0 Cannula 03/19 0106 95 12 97 4.0 03/19 0030 Nasal 4.0 Cannula 03/18 2302 98 14 97 03/18 2238 37.1 92 9 134/76 95 Nasal 4.0 Cannula 03/18 2100 37.1 90 11 125/70 98 Nasal 4.0 Cannula 03/18 2030 96 10 134/77 94 Nasal 4.0 Cannula 03/18 2030 89 6 99 4.0 03/18 2006 36.6 88 14 118/66 96 Nasal 4.0 Cannula 03/18 1945 36.6 95 16 143/79 97 Nasal 4.0 Cannula 03/18 1930 36.5 91 16 127/63 96 Nasal 4.0 Cannula 03/18 1915 36.2 87 16 130/70 94 Nasal 4.0 Cannula 03/18 1900 4.0 03/18 1858 36.0 73 16 142/80 99 Nasal 4.0 Cannula 03/18 1840 36.2 80 14 128/72 95 Nasal 4.0 Cannula 03/18 1835 36.2 78 12 132/69 95 Nasal 4.0 Cannula 03/18 1830 82 12 130/66 97 Nasal 4.0 Cannula 03/18 1825 76 12 142/76 96 Nasal 4.0 Cannula 03/18 1820 79 12 128/63 96 Nasal 4.0 Cannula 03/18 1815 77 12 127/63 98 Nasal 4.0 Cannula 03/18 1810 79 12 118/62 99 Nasal 4.0 Cannula 03/18 1805 80 12 124/66 100 VentI-Mask 6.0 03/18 1340 61 18 145/62 95 05 1310 60 18 138/64 96 03/18 1240 53 17 146/67 94 03/18 1225 53 18 158/73 94 03/18 1210 36.3 58 19 160/76 95 03/18 1159 36.1 83 11 122/66 100 VentI-Mask 6.0 03/18 1115 37.0 63 20 157/75 95 Nasal 1.0 Cannula 03/18 0930 2.0 03/18 0911 100 Nasal 2.0 Cannula 03/18 0904 36.6 69 18 165/78 89 Room Air 0.0 I&O 03/19 0000 03/18 1600 03/18 0800 Intake Total 100 700 Output Total 685 550 Balance -585 150 Small amount of drain output in canister, none charted. General Appearance Alert, Oriented X3, Cooperative, No acute distress Extremities Dressings CDI, abduction pillow,TEDs&SCDs in place. No calf tenderness leg length or rotational assymetry. Skin No Rashes, No Breakdown, No Significant Lesions ([place] & warm w ~2sec cap refill) Neurological Normal exam, Normal speech, Normal tone, Sensation intact, No lateralizing signs, Fires B AD&PFs & E&FHLs Psych/Mental Status Mental status normal, Mood normal LAB Results Laboratory Tests 03/19 03/19 0537 0500 Chemistry Plasma Sodium (136 - 145 mmol/L) 141 Plasma Potassium (3.5 - 5.1 mmol/L) 3.7 Plasma Chloride (98 - 107 mmol/L) 107 CO2 (Enzymatic) (21 - 32 mmol/L) 26 BUN (7 - 18 mg/dL) 18 Creatinine (0.6 - 1.3 mg/dL) 0.9 Est GFR ( Amer) (mL/min) >60 Est GFR (Non-Af Amer) (mL/min) >60 Glucose (70 - 110 mg/dL) 168 Plasma Calcium (8.5 - 10.1 mg/dL) 7.6 Hematology WBC (4.5 - 11.5 K/uL) 22.9 RBC (4.50 - 5.90 M/uL) 4.07 Hgb (13.5 - 17.5 gm/dL) 12.8 Cancelled Hct (41.0 - 53.0 %) 37.4 Cancelled MCV (80 - 100 fL) 92 MCH (26 - 34 pg) 31 RDW (11.6 - 14.8 %) 13.8 Neut % (Auto) (50 - 75 %) 90.9 Lymph % (Auto) (25 - 40 %) 2.3 [place] % (Auto) (3 - 14 %) 6.4 Eos % (Auto) (0 - 4 %) 0.4 Baso % (Auto) (0 - 2 %) 0 Plt Count, EDTA (150 - 400 K/uL) 138 PUBS MCHC (31 - 37 g/dL) 34 Imaging R cemented hip hemiarthrolasty in apporpriate position, no periprosthetic fxs, hip reduced, leg lengths close to =. Assessment and Plan Problem List 1. RIGHT HIP FRACTURE Status Acute Onset Date 03/18/17 Plan R hip hemiarthroplasty 2. Status post hip hemiarthroplasty Status Acute Onset Date 03/18/17 Plan Doing well orthopaedically POD#1. DC'd drain. Will DC Dejesus per protocol. Cont. B TEDs/SCDs ECASA 325 mg 2x/d x 6 wks. WBAT with posterior R hip precautions, OOB with PT/RN/Elias with walker and fall precautions. DC planning anticipate SNF in ~ 2 days. Follow Hct for post-tramatic/post-operative blood loss anemia.
--- NOTE | 2017-03-19 10:21 | Progress Note ---
Subjective General his is an 86-year-old white male who woke up last night from sleep and tried to walk to the door. 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 Friends came in and he got up with their help and called 911. He was transferred to the emergency department and was found to have a right hip fracture. He developed pain in the right hip immediately after the fall. Pt is able to sit up now will work with PT, denies any fever or chills, no cp no dyspnea, has some nausea no vomiting, no abd pain Review of system: Constitutional: Negative for fever or chills Respiratory system: Negative for chest pain or shortness of breath GI: Positive for nausea negative for vomiting or abdominal pain Physical Exam Vital Signs / I&Os Vital Signs Date Time Temp Pulse Resp B/P Pulse O2 O2 Flow FiO2 Ox Delivery Rate 03/19 0922 72 24 98 03/19 0830 4.0 03/19 0802 91 11 98 4.0 03/19 0709 99.0 89 8 110/58 97 Nasal 4.0 Cannula 03/19 0518 99 11 97 4.0 03/19 0327 92 17 97 4.0 03/19 0253 98.6 89 10 144/70 98 Nasal 5.0 Cannula 03/19 0106 95 12 97 4.0 03/19 0030 Nasal 4.0 Cannula 03/18 2302 98 14 97 03/18 2238 98.8 92 9 134/76 95 Nasal 4.0 Cannula 03/18 2100 98.8 90 11 125/70 98 Nasal 4.0 Cannula 03/18 2030 96 10 134/77 94 Nasal 4.0 Cannula 03/18 2030 89 6 99 4.0 03/18 2006 97.9 88 14 118/66 96 Nasal 4.0 Cannula 03/18 1945 97.9 95 16 143/79 97 Nasal 4.0 Cannula 03/18 1930 97.7 91 16 127/63 96 Nasal 4.0 Cannula 03/18 191 97.2 87 16 130/70 94 Nasal 4.0 Cannula 03/18 1900 4.0 03/18 1858 96.8 73 16 142/80 99 Nasal 4.0 Cannula 03/18 1840 97.2 80 14 128/72 95 Nasal 4.0 Cannula 03/18 1835 97.2 78 12 132/69 95 Nasal 4.0 Cannula 03/18 1830 82 12 130/66 97 Nasal 4.0 Cannula 03/18 1825 76 12 142/76 96 Nasal 4.0 Cannula 03/18 1820 79 12 128/63 96 Nasal 4.0 Cannula 03/18 1815 77 12 127/63 98 Nasal 4.0 Cannula 03/18 1810 79 12 118/62 99 Nasal 4.0 Cannula 03/18 1805 80 12 124/66 100 VentI-Mask 6.0 03/18 1340 61 18 145/62 95 03/18 1310 60 18 138/64 96 03/18 1240 53 17 146/67 94 03/18 1225 53 18 158/73 94 03/18 1210 97.3 58 19 160/76 95 03/18 1159 97.0 83 11 122/66 100 VentI-Mask 6.0 03/18 1115 98.6 63 20 157/75 95 Nasal 1.0 Cannula I&O 03/19 0000 03/18 1600 03/18 0800 Intake Total 100 700 Output Total 685 550 Balance -585 150 General Appearance No acute distress Lungs Clear to auscultation Neck Supple Cardiovascular Regular rate and rhythm, Normal S1 and S2, No murmurs, gallops, rubs Abdomen Normal bowel sounds, Soft, No tenderness Extremities No edema Skin No Rashes Psych/Mental Status Mental status normal LAB Results Laboratory Tests 03/19 03/19 0537 0500 Chemistry Plasma Sodium (136 - 145 mmol/L) 141 Plasma Potassium (3.5 - 5.1 mmol/L) 3.7 Plasma Chloride (98 - 107 mmol/L) 107 CO2 (Enzymatic) (21 - 32 mmol/L) 26 BUN (7 - 18 mg/dL) 18 Creatinine (0.6 - 1.3 mg/dL) 0.9 Est GFR ( Amer) (mL/min) >60 Est GFR (Non-Af Amer) (mL/min) >60 Glucose (70 - 110 mg/dL) 168 Plasma Calcium (8.5 - 10.1 mg/dL) 7.6 Hematology WBC (4.5 - 11.5 K/uL) 22.9 RBC (4.50 - 5.90 M/uL) 4.07 Hgb (13.5 - 17.5 gm/dL) 12.8 Cancelled Hct (41.0 - 53.0 %) 37.4 Cancelled MCV (80 - 100 fL) 92 MCH (26 - 34 pg) 31 RDW (11.6 - 14.8 %) 13.8 Neut % (Auto) (50 - 75 %) 90.9 Lymph % (Auto) (25 - 40 %) 2.3 [place] % (Auto) (3 - 14 %) 6.4 Eos % (Auto) (0 - 4 %) 0.4 Baso % (Auto) (0 - 2 %) 0 Plt Count, EDTA (150 - 400 K/uL) 138 PUBS MCHC (31 - 37 g/dL) 34 Assessment and Plan Problem List 1. HTN (hypertension) Plan controlled continue current meds 2. CAD (coronary artery disease) Plan stable continue current meds 3. RIGHT HIP FRACTURE Status Acute Onset Date 03/18/17 Plan start PT today 4. Elevated WBC count Plan will restart Ancef imperically
--- NOTE | 2017-03-19 12:29 | NUR ---
1000- lowell dc'd per order dr. gramajo 1130- bp low, md bowen notified, bolus given 1230- bp now WNL
--- NOTE | 2017-03-19 14:00 | NUR ---
NUTRITION ASSESSMENT: S: Pt admitted with dx/o hip fx and s/p hip hemiarthroplasty yesterday 03/18. Pt is eating ~25-50%, no problems with chewing or swallowing noted or reported. Pt anxious to go home per report. O: Diet Rx: General Regular thin NKFA Wts: 59.7 kg Ht: 68" IBW: 60-75 kg BMI: 20 Est kcals: 6318-4385 kcals per day Est pro: ~70-80 g per day Est fluids: ~2.0 mls per day Meds Incl: ~aspirin, lipitor, levothyroxine, metoprolol, protonix, prednsione, IV ABOs, IVFs, see eMar for complete list/details. Labs Incl: (03/19) glucose 168, BUN 18, Creat 0.9, Na+ 141, K+ 3.7, Ca+ 7.6, HCT 37.4, HGB 12.8, MCV 92, MCH 31, (03/18) albumin 3.5, total pro: 7.4 Skin: waffle overlay in place, alejandro Score 18 A: Pts appetite a appears fair. Offer assistance 2/2 pt with blindness. Rev'd meds and labs. May see elevated glucose values with prednisone rx. No hx/o diabetes noted. BMI wnl, no wt loss desired, some gain acceptable (see wt ranges above). Rec continue same at this time as appears appropriate and tolerated. RD to follow up prn/protocol. P: 1. Offer assist with meals if needed.
--- NOTE | 2017-03-19 16:26 | NUR ---
TOLD DR TAY REGARDING PATIENT NOT VOIDING MUCH. TOLD I BLADDER SCANNED HIM AND AMOUNT 113. TOLD ME TO KEEP AN EYE ON IT AND WAS NOT CONCERNED AT THIS TIME. NO NEW ORDERS FROM .
--- NOTE | 2017-03-19 18:49 | NUR ---
PATIENT RESTING IN BED NOW. IN NO DISTRESS. WAS TOLD DR IS AWARE OF CURRENT LAB VALUES. SCDS ON PER MD ORDERS.
--- NOTE | 2017-03-19 18:57 | NUR ---
DRESSIGN ON HIP STILL C/D/I.
--- NOTE | 2017-03-20 00:24 | NUR ---
RESTING IN BED, O2 @ 4L PER NC. R HIP DRESSING CDI.ABDUCTOR PILLOW IN PLACED. C/O 5/10 R HIP PAIN, PRN PAIN MEDS GIVEN.
[2017-03-20 02:02] VITALS: BP 96/53
[2017-03-20 06:58] VITALS: BP 110/65
--- NOTE | 2017-03-20 07:50 | Progress Note ---
Subjective General No complaints. Voided after etienne bremoved. Wally Diet. Up to chair with PT rec' inf SNF p DC. Denies CP, SOB, calf pain. No BM yet. Physical Exam Vital Signs / I&Os Vital Signs Date Time Temp Pulse Resp B/P Pulse O2 O2 Flow FiO2 Ox Delivery Rate 03/20 0658 36.9 72 18 110/65 96 Nasal 4.0 Cannula 03/20 0202 37.7 75 16 96/53 92 Nasal 4.0 Cannula 03/20 0026 Nasal 4.0 Cannula 03/19 2259 95 Nasal 4.0 Cannula 03/19 2255 37.7 88 16 118/67 79 Room Air 03/19 2125 4.0 03/19 2057 82 111/64 03/19 1825 4.0 03/19 1815 36.4 80 16 117/63 95 Nasal 4.0 Cannula 03/19 1440 37.4 82 16 105/61 93 Nasal 4.0 Cannula 03/19 1226 72 115/42 03/19 1129 74 8 94/48 92 Nasal 4.0 Cannula 03/19 1113 36.5 76 8 85/45 92 Nasal 4.0 Cannula 03/19 0922 72 24 98 03/19 0830 4.0 03/19 0802 91 11 98 4.0 I&O 03/20 0000 03/19 1600 03/19 0800 Intake Total 60 1860 852 Output Total 225 150 400 Balance -165 1710 452 General Appearance Alert, Oriented X3, Cooperative, No acute distress Extremities Dressings CDI. No redness. No LLD, abd pillow, B TEDs & SCDs on. Skin No Rashes, No Breakdown, No Significant Lesions Neurological Sensation intact, Fires B AD&PFs & E&FHLs Psych/Mental Status Mental status normal, Mood normal Other Cap refill ~ 2 sec B toes. LAB Results Laboratory Tests 03/20 03/19 0515 1935 Chemistry Plasma Sodium (136 - 145 mmol/L) 142 Plasma Potassium (3.5 - 5.1 mmol/L) 3.4 Plasma Chloride (98 - 107 mmol/L) 109 CO2 (Enzymatic) (21 - 32 mmol/L) 27 BUN (7 - 18 mg/dL) 24 Creatinine (0.6 - 1.3 mg/dL) 1.0 Est GFR ( Amer) (mL/min) >60 Est GFR (Non-Af Amer) (mL/min) >60 Glucose (70 - 110 mg/dL) 137 Plasma Calcium (8.5 - 10.1 mg/dL) 7.1 Hematology WBC (4.5 - 11.5 K/uL) 17.1 RBC (4.50 - 5.90 M/uL) 3.30 Hgb (13.5 - 17.5 gm/dL) 10.4 Hct (41.0 - 53.0 %) 30.5 MCV (80 - 100 fL) 93 MCH (26 - 34 pg) 32 RDW (11.6 - 14.8 %) 14.1 Neut % (Auto) (50 - 75 %) 87.8 Lymph % (Auto) (25 - 40 %) 4.0 [place] % (Auto) (3 - 14 %) 5.7 Eos % (Auto) (0 - 4 %) 2.5 Baso % (Auto) (0 - 2 %) 0 Plt Count, EDTA (150 - 400 K/uL) 90 PUBS MCHC (31 - 37 g/dL) 34 Urines Urine Color ROCK Urine Appearance CLEAR Urine pH (5.0 - 8.0) 6.0 Ur Specific [place] (1.010 - 1.030) 1.020 Urine Protein (NEGATIVE) TRACE Urine Ketones (NEGATIVE) NEGATIVE Urine Blood (NEGATIVE) TRACE-INTACT Urine Nitrite (NEGATIVE) NEGATIVE Urine Bilirubin (NEGATIVE) NEGATIVE Urine Urobilinogen (0.2 - 1.0 EU/dL) 0.2 Ur Leukocyte Esterase (NEGATIVE) NEGATIVE Urine RBC (0 - 1 rbc/hpf) 3-5 Urine WBC (0 - 1 wbc/hpf) 1-3 Ur Epithelial Cells (0 - 5 EPI/hpf) 0-1 Urine Bacteria (NONE SEEN) TRACE (<1+) Urine Glucose (NEGATIVE) NEGATIVE Urine Comment CULT NOT INDICATED Assessment and Plan Problem List 1. Status post hip hemiarthroplasty Status Acute Onset Date 03/18/17 Plan Continue current care as in yest prog note plan. Needs BM and dressing change prior to DC to SNF on ECASA & postyerior R hip precautions for PT. RTC 2 weeks. 2. Elevated WBC count Plan Likely due to stress demargination. Hospitalist following.
--- NOTE | 2017-03-20 08:43 | Progress Note ---
Subjective General This is an 86-year-old white male who woke up last night from sleep and tried to walk to the door. 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 Friends came in and he got up with their help and called 911. He was transferred to the emergency department and was found to have a right hip fracture. He developed pain in the right hip immediately after the fall. Doing fine, pain is controlled, still has nausea, no cp no dyspnea, no abd. pain , no fever or chills would like something stronger for nausea Review of system: GI: Positive for nausea no vomiting Respiratory system: Negative for dyspnea or chest pain Constitutional: Negative for fever or chills Physical Exam General Appearance No acute distress Lungs Clear to auscultation Neck Supple Cardiovascular Regular rate and rhythm, Normal S1 and S2, No murmurs, gallops, rubs Abdomen Normal bowel sounds, Soft, No tenderness Extremities No edema Skin No Rashes Psych/Mental Status Mental status normal LAB Results Laboratory Tests 03/20 03/19 0515 1935 Chemistry Plasma Sodium (136 - 145 mmol/L) 142 Plasma Potassium (3.5 - 5.1 mmol/L) 3.4 Plasma Chloride (98 - 107 mmol/L) 109 CO2 (Enzymatic) (21 - 32 mmol/L) 27 BUN (7 - 18 mg/dL) 24 Creatinine (0.6 - 1.3 mg/dL) 1.0 Est GFR ( Amer) (mL/min) >60 Est GFR (Non-Af Amer) (mL/min) >60 Glucose (70 - 110 mg/dL) 137 Plasma Calcium (8.5 - 10.1 mg/dL) 7.1 Hematology WBC (4.5 - 11.5 K/uL) 17.1 RBC (4.50 - 5.90 M/uL) 3.30 Hgb (13.5 - 17.5 gm/dL) 10.4 Hct (41.0 - 53.0 %) 30.5 MCV (80 - 100 fL) 93 MCH (26 - 34 pg) 32 RDW (11.6 - 14.8 %) 14.1 Neut % (Auto) (50 - 75 %) 87.8 Lymph % (Auto) (25 - 40 %) 4.0 [place] % (Auto) (3 - 14 %) 5.7 Eos % (Auto) (0 - 4 %) 2.5 Baso % (Auto) (0 - 2 %) 0 Plt Count, EDTA (150 - 400 K/uL) 90 PUBS MCHC (31 - 37 g/dL) 34 Urines Urine Color ROCK Urine Appearance CLEAR Urine pH (5.0 - 8.0) 6.0 Ur Specific [place] (1.010 - 1.030) 1.020 Urine Protein (NEGATIVE) TRACE Urine Ketones (NEGATIVE) NEGATIVE Urine Blood (NEGATIVE) TRACE-INTACT Urine Nitrite (NEGATIVE) NEGATIVE Urine Bilirubin (NEGATIVE) NEGATIVE Urine Urobilinogen (0.2 - 1.0 EU/dL) 0.2 Ur Leukocyte Esterase (NEGATIVE) NEGATIVE Urine RBC (0 - 1 rbc/hpf) 3-5 Urine WBC (0 - 1 wbc/hpf) 1-3 Ur Epithelial Cells (0 - 5 EPI/hpf) 0-1 Urine Bacteria (NONE SEEN) TRACE (<1+) Urine Glucose (NEGATIVE) NEGATIVE Urine Comment CULT NOT INDICATED Assessment and Plan Problem List 1. HTN (hypertension) Plan controlled continue current meds 2. CAD (coronary artery disease) Plan stable, continue current management 3. RIGHT HIP FRACTURE Status Acute Onset Date 03/18/17 Plan pain controlled ,ready to be discharged to [facility], will change antiemetic med
--- NOTE | 2017-03-20 09:36 | NUR ---
PATIENT UP FOR BREAKFAST IN CHAIR THIS MORNING. AMBULATED TO CHAIR WITH FWW AND 1 PERSON ASSIST. LEGALLY BLIND SO HAS TO BE WALKED THROUGH ALL STEPS AND HIGHLY CUED. TOLERATED SITTING UP IN CHAIR WELL. DAUGHTER AND CAREGIVER ATTENDING PATIENT IN ROOM. NO C/O PAIN AT THIS TIME. DRSG TO R HIP CDI. NO BM FOR SEVERAL DAYS. ON BOWEL PROTOCOL AND GIVEN 2 FRUIT PASTES THIS AM. SEE SHIFT ASSESSMENT FOR FURTHER DETAILS.
[2017-03-20 11:02] VITALS: BP 106/64
--- NOTE | 2017-03-20 11:19 | NUR ---
pt seated in chair and agreeable to skilled PT intervention. pt completed sit to stand Min A with a FWW. pt needs constant v/c for movement secondary to vision deficit. pt took 4 step forward but was unable to move FWW forward. pt became quickly unsteady and losing balance backward. Min A to regain balance. pt able to turn self but needs A to turn FWW during the activity. Once sitting pt was a Mod A for sit to supine. Abductor pillow placed. pt left with call vallejo within reach. pt is recommended to d/c to SNF with PT to increase safe functional strength prior to returning home.
[2017-03-20 14:25] VITALS: BP 112/76
--- NOTE | 2017-03-20 17:34 | NUR ---
PATIENT WAS UP TO CHAIR FOR BREAKFAST, RECEIVED PAIN MEDICATION BEFORE WORKING WITH PT. PATIENT WAS UP IN CHAIR FOR A WHILE AFTER BREAKFAST AND THEN WENT BACK TO BED. PATIENT CONFUSED AT TIMES AND PULLING AT O2 TUBING AND GOWN. CAREGIVER WHO HAS BEEN IN PATIENT ROOM ALL DAY STATES THAT SHE BELIEVES PATIENT IS CONFUSED BECAUSE OF PAIN MEDICATION. THIS RN CALLED MD WHO PUT IN AN ORDER FOR IBUPROFEN. THIS RN WILL ADMINISTER NON NARCOTIC MEDICATION IF PATIENT SHOWS SX OF PAIN. NO SX OF PAIN AT THIS TIME. PATIENT UP IN CHAIR IN ROOM BUT DOES NOT WANT ANYTHING TO EAT AT THIS TIME. HAS NOT HAD BM SO FAR TODAY.
[2017-03-20 18:15] VITALS: BP 142/75
[2017-03-20 22:34] VITALS: BP 134/66
--- NOTE | 2017-03-20 22:52 | NUR ---
PT IS VERY DROWSY TONIGHT, WAKING UP TO MY VOICE BUT THEN FALLING RIGHT BACK TO SLEEP. I HAD TO WAKE HIM UP IN BETWEEN EYE DROPS GIVEN AND I WAS ABLE TO GET HIM TO SWALLOW HIS PO MEDICATIONS BUT I HAD TO TELL HIM TO TALK HIM THROUGH THE STEPS OF DRINKING WATER AND SWALLOWING. I CHECKED HIS MOUTH TO MAKE SURE NO PILLS REMAINED.
[2017-03-21 02:04] VITALS: BP 129/72
--- NOTE | 2017-03-21 05:27 | NUR ---
ASLEEP IN BETWEEN CARE. R HIP DRESSING CDI. ALERT AND ORIENTED.
[2017-03-21 06:55] VITALS: BP 116/63
--- NOTE | 2017-03-21 07:18 | Progress Note ---
Subjective General No new c/o, no CP/SOB, hip pain decreasing. Daughter visited yesterday. Worked with PT. No BM yet. Physical Exam Vital Signs / I&Os Vital Signs Date Time Temp Pulse Resp B/P Pulse O2 O2 Flow FiO2 Ox Delivery Rate 03/21 0204 36.8 63 14 129/72 98 Nasal 3.0 Cannula 03/20 2338 Nasal 3.0 Cannula 03/20 2234 37.1 67 15 134/66 97 Nasal 3.0 Cannula 03/20 2100 Nasal 3.0 Cannula 03/20 1926 3.0 03/20 1815 37.4 79 16 142/75 96 Nasal 3.0 Cannula 03/20 1425 37.0 70 16 112/76 93 Nasal 3.0 Cannula 03/20 1102 36.8 61 18 106/64 96 Nasal 4.0 Cannula 03/20 1021 4.0 03/20 0841 4.0 I&O 03/21 0000 03/20 1600 03/20 0800 Intake Total 508 915 5753 Output Total 100 200 225 Balance 059 08 3997 General Appearance Alert, Oriented X3, Cooperative, No acute distress Extremities No calf tenderness, B. Abd pillow, B TEDs & SCDs on. Skin No Rashes, No Breakdown, No Significant Lesions, No significant drainage, redness or swelling at pristine incision and drain site. Neurological Normal tone, Sensation intact, No lateralizing signs Psych/Mental Status Mental status normal, Mood normal LAB Results Laboratory Tests 03/21 03/21 0525 0500 Hematology Hgb (13.5 - 17.5 gm/dL) 9.6 Cancelled Hct (41.0 - 53.0 %) 28.1 Cancelled Assessment and Plan Problem List 1. Status post hip hemiarthroplasty Status Acute Onset Date 03/18/17 Plan Doing well POD#3. Ducolax suppository for BM before DC to SNF today. Continue R posterior hip precautions & ECASA 325 mg 2x/day x 6 weeks. Change dressing prn drainage/wetness keep wound dry & leave steri strips on until RTC aproximately 2 weeks post op to see me between 04/02 & 04/08/17.
--- NOTE | 2017-03-21 07:18 | Progress Note ---
Subjective General No new c/o, no CP/SOB, hip pain decreasing. Daughter visited yesterday. Worked with PT. No BM yet. Physical Exam Vital Signs / I&Os Vital Signs Date Time Temp Pulse Resp B/P Pulse O2 O2 Flow FiO2 Ox Delivery Rate 03/21 0204 36.8 63 14 129/72 98 Nasal 3.0 Cannula 03/20 2338 Nasal 3.0 Cannula 03/20 2234 37.1 67 15 134/66 97 Nasal 3.0 Cannula 03/20 2100 Nasal 3.0 Cannula 03/20 1926 3.0 03/20 1815 37.4 79 16 142/75 96 Nasal 3.0 Cannula 03/20 1425 37.0 70 16 112/76 93 Nasal 3.0 Cannula 03/20 1102 36.8 61 18 106/64 96 Nasal 4.0 Cannula 03/20 1021 4.0 03/20 0841 4.0 I&O 03/21 0000 03/20 1600 03/20 0800 Intake Total 981 309 2208 Output Total 100 200 225 Balance 050 23 0529 General Appearance Alert, Oriented X3, Cooperative, No acute distress Extremities No calf tenderness, B. Abd pillow, B TEDs & SCDs on. Skin No Rashes, No Breakdown, No Significant Lesions, No significant drainage, redness or swelling at pristine incision and drain site. Neurological Normal tone, Sensation intact, No lateralizing signs Psych/Mental Status Mental status normal, Mood normal LAB Results Laboratory Tests 03/21 03/21 0525 0500 Hematology Hgb (13.5 - 17.5 gm/dL) 9.6 Cancelled Hct (41.0 - 53.0 %) 28.1 Cancelled Assessment and Plan Problem List 1. Status post hip hemiarthroplasty Status Acute Onset Date 03/18/17 Plan Doing well POD#3. Ducolax suppository for BM before DC to SNF today. Continue R posterior hip precautions & ECASA 325 mg 2x/day x 6 weeks. Change dressing prn drainage/wetness keep wound dry & leave steri strips on until RTC aproximately 2 weeks post op to see me between 04/02 & 04/08/17.
--- NOTE | 2017-03-21 07:51 | NUR ---
PATIENT UP IN CHAIR FOR BREAKFAST WITH FWW AND 1 PERSON ASSIST. SUPPOSITORY GIVEN THIS AM TO HAVE BM DUE TO SEVERAL DAYS NO BM. A AND O X 4. LEGALLY BLIND. LUNGS CLEAR. ON 2LNC AND ENCOURAGED TO COUGH AND DEEP BREATHE. MODERATE AMOUNT OF LIGHT YELLOW PHLEGM. DARK YELLOW CLEAR URINE. NO EDEMA IN BLE'S. SCD'S ON WHILE IN BED. TEDS ON BILATERALLY. STATES SORENESS IN R HIP 12/07. PATIENT HAS BEEN ACCEPTED AT [facility].
[2017-03-21] MEDS ORDERED: KEFLEX750 MG PO (08:16)
[2017-03-21] MEDS ORDERED: VICODIN EQUIVAL1 TAB PO (08:16)
--- NOTE | 2017-03-21 08:37 | DISCHARGE SUMMARY ---
ADMIT DATE: 03/18/2017 DISCHARGE DATE: 03/21/2017 DISCHARGE DIAGNOSES: 1. Right hip fracture status post repair. 2. Hypertension. 3. Coronary artery disease BRIEF HISTORY: This is an 86-year-old white male who was admitted on 03/18/2017. The patient presented with a fall the night before the admission while he woke up from sleep and tried to walk to the door and he was legally blind and missed the door and tripped and fell and could not get up and developed pain in the right hip and was transferred to the emergency room and was found to have a right hip fracture. HOSPITAL COURSE: The patient was admitted to acute care and orthopedic consultation was obtained. The patient went through a right hip fracture repair and did very well. The patient had a physical therapy evaluation and was able to sit up in the chair and then did very well after surgery and right now he is doing fine, no fever, no chills. Pain is controlled. No nausea. No vomiting. Tolerating food good. No chest pain, no shortness of breath. PHYSICAL EXAMINATION: VITAL SIGNS: Temperature is 98.3 degrees, pulse is 69, respirations 20, blood pressure 116/63, pulse ox 96% on 3 L. LUNGS: Clear to auscultation except a few crackles on both bases. Heart: Regular S1 and S2. No murmur. No S3. ABDOMEN: Soft, nontender. Bowel sounds are positive. EXTREMITIES: No edema. LABORATORY DATA: Hemoglobin is 9.6, hematocrit 28.1. Sodium is 142, potassium is 3.4, chloride is 109, CO2 is 27, creatinine is 1, BUN is 24, sugar 137, calcium 7.1. DISCHARGE INSTRUCTIONS/MEDICATIONS: The patient will be discharged to residential facility for rehabilitation today. Discharge medications will be: 1. Magnesium 300 mg once a day. 2. Potassium, was taking 20 mEq, I increased it to 40 mEq daily. 3. Also, the patient will continue Ancef 500 mg q.8 hours for 5 more days. 4. Protonix 40 mg daily. 5. Levoxyl 50 mcg once a day. 6. The patient will continue eyedrops. 7. Aspirin 325 mg once a day. 8. Lipitor 20 mg daily. 9. Lisinopril 5 mg daily. 10. Also, I will put the patient on Vicodin 3 times a day for pain management. 11. The patient will follow up with his primary care physician in the retirement within 1 week.
[2017-03-21 11:14] VITALS: BP 114/60
[2017-03-21 14:45] VITALS: BP 147/87
--- NOTE | 2017-03-21 14:53 | NUR ---
THIS RN GAVE PATIENT SUPPOSITORY WITH NO RESULTS, ENEMA WITH NO RESULTS, AND THEN MAGNESIUM CITRATE, AND ALSO SCHEDULED MEDS. HAD MEDIUM LOOSE BM. NOTIFIED SADIA.
--- NOTE | 2017-03-21 16:46 | NUR ---
PT KEEPS EYES CLOSED AND ANSWERS QUESTIONS WITH ONE WORD ANSWERS. MEPILEX CDI. NO PAIN THIS TIME. LARGE SOFT BM AND VOIDING IN BRIEF AN HOUR AFTERWARDS. PT'S CAREGIVER USES CALL LIGHT, NC AT 2L LUNGS CLEAR BUT DIMINISHED. NO ISSUES AT THIS TIME. WCTM.
--- NOTE | 2017-03-21 17:46 | NUR ---
PT IS REFUSING TO EAT, STATING "NOT HUNGRY, TOO TIRED, LET ME SLEEP" DESPITE PROMPTING AND EDUCATION ON IMPORTANCE OF NUTRITION. WILL ATTEMPT TO PROVIDE SNACK IN AN HOUR. WCTM.
[2017-03-21 19:00] VITALS: BP 166/91
--- NOTE | 2017-03-21 19:57 | NUR ---
PT CONTINUES TO HAVE VERY LOOSE STOOLS AND VERY DROWSY. TOLERATES WATER AND MEDS BUT REFUSES TO EAT. BARRIER CREAM APPLIED TO BUTTOCKS TO PROTECT FROM DIARRHEA. WCTM.
[2017-03-21 22:28] VITALS: BP 152/76
[2017-03-22 02:52] VITALS: BP 139/66
--- NOTE | 2017-03-22 05:25 | NUR ---
PT HAD AN UNEVENTFUL NIGHT WITH NOT FURTHER EPISODES OF LOOSE STOOLS. DRESSING TO RIGHT HIP IS CLEAN DRY AND INTACT AND PT IS REPORTING THAT HIS PAIN IS FINE AND CMS INTACT. PT HAD A SMALL AMOUNT OF A BOOST SHAKE A SNACK BUT DECLINED ALL OTHER OFFERS. PROVIDED WATER AND MOUTH SWABS TO HELP WITH DRYNESS TO LIPS AND MOUTH. PT IS STILL DROWSY BUT WAS ABLE TO WAKE UP ENOUGH THIS MORNING TO SWALLOW HIS MEDICATION WITH NO DIFFICULTY.
[2017-03-22 07:09] VITALS: BP 143/76
--- NOTE | 2017-03-22 10:51 | NUR ---
PT ALERT AND ORIENTED DISCHARGE INSRUCTIONS REVIEWED WITH PT AND [facility]
== END 2017-03-22 10:10 | DRG 470 ==
LOC: ED SRH 05:40 → TRANS SRH 06:29 → ACUTE2 SRH 08:36
PROVIDERS: Orthopaedic Surgery; ADMIT Neuromusculoskeletal Medicine, Sports Medicine
PROC: 0SRR0J9 Replacement of Right Hip Joint, Femoral Surface with Synthetic Substitute, Cemented, Open Approach (ICD-10-PCS; principal; 2017-03-18 14:00)
DX: S72.001A Fracture of unspecified part of neck of right femur, initial encounter for closed fracture (principal); W01.0XXA Fall on same level from slipping, tripping and stumbling without subsequent striking against object, initial encounter; Y93.01 Activity, walking, marching and hiking; Y92.013 Bedroom of single-family (private) house as the place of occurrence of the external cause; Y99.8 Other external cause status; M81.0 Age-related osteoporosis without current pathological fracture; H54.8 Legal blindness, as defined in USA; E03.9 Hypothyroidism, unspecified; I10 Essential (primary) hypertension; I25.10 Atherosclerotic heart disease of native coronary artery without angina pectoris; Z95.5 Presence of coronary angioplasty implant and graft; I25.2 Old myocardial infarction